=== PATIENT | female | born 1980 | race Two or more races ===

== ENCOUNTER 2018-10-01 13:00 | Emergency (ER) | payer OTHER ==
[~2018-10-01] VITALS: Ht 160 cm; Wt 66.0 kg
[2018-10-01 13:04] VITALS: BP 109/74
[2018-10-01] MEDS ORDERED: HYDROcodone/APAP 5/325 TABLET ONE (13:20)
[2018-10-01] MEDS ORDERED: HYDROcodone/APAP 5/325 TABLET PO ONE (13:30)
== END 2018-10-01 14:40 | disposition home or self-care (01) ==
LOC: ED 14:30
DX: S90.121A Contusion of right lesser toe(s) without damage to nail, initial encounter (principal); W22.8XXA Striking against or struck by other objects, initial encounter; Y93.89 Activity, other specified; Y92.009 Unspecified place in unspecified non-institutional (private) residence as the place of occurrence of the external cause; Y99.8 Other external cause status
CPT/HCPCS: 99283